=== PATIENT | male | born 1985 | race Hispanic/Latino ===

== ENCOUNTER 2018-12-27 11:52 | Emergency (ER) | payer OTHER ==
[2018-12-27 12:20] VITALS: BP 138/82; PULSE 62; RESP 18; TEMP 97.8; O2SAT 100
--- NOTE | 2018-12-27 13:59 | ED PDOC ---
Lower Extremity Pain/Injury Time Seen by Provider: 12/27/18 12:50 Chief Complaint (Nursing): Lower Extremity Problem/Injury Chief Complaint (Provider): Right 5th toe injury History Per: Patient History/Exam Limitations: no limitations Current Symptoms Are (Timing): Still Present Additional Complaint(s): 33 y/o male presents to the ER for evaluation of right 5th toe injury which he sustained last night. He reports he was at the gym when he jammed his toe against the bench. He reports localized pain which initially wasn't that bad but is worsening. This morning, he noticed his toe is bending outwards prompting evaluation. He states he took Advil last night but took nothing today. Patient has no other complaints and reports no other injuries. Denies loss of sensation or fever. PMD: none in this area as patient recently relocated from [place]. Past Medical History Reviewed: Historical Data, Nursing Documentation, Vital Signs Vital Signs: Last Vital Signs Temp 97.8 F 12/27/18 12:15 Pulse 62 12/27/18 12:15 Resp 18 12/27/18 12:15 BP 138/82 12/27/18 12:15 Pulse Ox 100 12/27/18 12:15 Primary Care Provider: FAMILY PROVIDER,NO - Medical History PMH: No Chronic Diseases - Surgical History Other surgeries: Right elbow ORIF; Left knee ACL repair; Right ankle ligaments repair - Family History Family History: States: Unknown Family Hx - Home Medications Home Medications: Ambulatory Orders Medication Instructions Recorded Acetaminophen [Acetaminophen 8 650 mg PO Q8 PRN #21 tablet.er 12/27/18 Hour] Naproxen 500 mg PO BID PRN #20 tab 12/27/18 - Allergies Allergies/Adverse Reactions: Allergies Allergy/AdvReac Type Severity Reaction Status Date / Time No Known Allergies Allergy Verified 12/27/18 12:46 Review of Systems ROS Statement: Except As Marked, All Systems Reviewed And Found Negative Constitutional: Negative for: Fever Musculoskeletal: Positive for: Other (Right fifth toe injury with pain) Neurological: Negative for: Other (Loss of sensation) Physical Exam - Reviewed Nursing Documentation Reviewed: Yes Vital Signs Reviewed: Yes - Physical Exam Comments: GENERAL APPEARANCE: Patient is awake, alert, oriented x 3, in no acute distress. Resting comfortably and reading a book. SKIN: Warm, dry; (-) cyanosis. NECK: Supple, FROM ENT: Mucus membranes moist. Airway patent, (-) stridor. CHEST AND RESPIRATORY: (-) rales, (-) rhonchi, (-) wheezes; breath sounds equal bilaterally. Respirations even and nonlabored. HEART AND CARDIOVASCULAR: (-) irregularity LOWER EXTREMITY: Right foot: (+) diffuse tenderness with mild edema to the right fifth toe, no ROM of toe secondary to pain, (+) lateral angulation of 5th toe; sensation and capillary refill intact. Remainder of foot, ankle, and lower extremity nontender with full ROM. (-) calf tenderness (-) pedal edema NEURO AND PSYCH: Mental status as above. Gait: steady. Speech: clear. (-) facial asymmetry - ECG O2 Sat by Pulse Oximetry: 100 (RA) Pulse Ox Interpretation: Normal Medical Decision Making Medical Decision Making: Initial Impression: Acute toe injury r/o fracture Initial Plan: --Motrin 800mg PO --Right foot X-ray 3 views --Re-evaluation 1425 XR reviewed: oblique, slightly displaced fracture of the proximal phalanx of the right 5th toe as read by Heather FINNEGAN In light of XR findings, consult placed to podiatry resident. Case discussed with resident Alen Mayo, who agrees to evaluation in ED. Radiology report follows: Date of service: 12/27/2018 PROCEDURE: Right Foot Radiographs. HISTORY: 5th toe injury COMPARISON: None. TECHNIQUE: 3 views obtained. FINDINGS: BONES: Acute and angulated fracture proximal phalanx right 5th digit. The finding is marked on the study for review. JOINTS: Normal. SOFT TISSUES: Normal. OTHER FINDINGS: None. IMPRESSION: Acute fracture proximal phalanx right 5th digit. 1450 Podiatry at bedside. See consult note. 1515 Patient placed in chen tape, chey bandage and surgical shoe by podiatry. NV intact after placement. RICE encouraged. On re-evaluation, patient reports improvement of symptoms. On exam, patient remains AAOx3, in no acute distress. VSS, stable for discharge. Lab/Diagnostic results d/w the patient in great detail. Diagnosis of 5th toe fracture d/w the patient. Based on history, exam and diagnostic results, plan will be for outpatient follow up with Dr Hermosillo. Patient instructed to follow-up with pmd / referral provided / the clinic in 1- 2 days without fail. Advised to take medication as prescribed. Return to the emergency room at any time for any new or worsening symptoms. Patient states he fully agrees with and understands discharge instructions. States that he agrees with the plan and disposition. Verbalized and repeated discharge instructions and plan. I have given the patient opportunity to ask any additional questions. Scribe Attestation: Documented by Ki Hernandez acting as a scribe for Gaviota PUGH. Provider Scribe Attestation: All medical record entries made by the Scribe were at my direction and personally dictated by me. I have reviewed the chart and agree that the record accurately reflects my personal performance of the history, physical exam, medical decision making, and the department course for this patient. I have also personally directed, reviewed, and agree with the discharge instructions and disposition. Disposition - Clinical Impression Clinical Impression: Fracture of fifth toe, right, closed, Toe pain - Patient ED Disposition Is Patient to be Admitted: No Counseled Patient/Family Regarding: Studies Performed, Diagnosis, Need For Followup, Rx Given - Disposition Referrals: Jesse Hermosillo MD [Staff Provider] - Disposition: Routine/Home Disposition Time: 15:15 Condition: STABLE Additional Instructions: The emergency medical care you received today was directed at your acute symptoms. If you were prescribed any medication, please fill it and take as directed. It may take several days for your symptoms to resolve. Return to the Emergency Department if your symptoms worsen, do not improve, or if you have any other problems. Please contact your doctor in 2 days for re-evaluation and follow up / or call one of the physicians/clinics you have been referred to that are listed on the Patient Visit Information form that is included in your discharge packet. Bring any paperwork you were given at discharge with you along with any medications you are taking to your follow up visit. Our treatment cannot replace ongoing medical care by a primary care provider (PCP) outside of the emergency department. Prescriptions: Acetaminophen [Acetaminophen 8 Hour] 650 mg PO Q8 PRN #21 tablet.er PRN Reason: Pain, Moderate (4-7) Naproxen 500 mg PO BID PRN #20 tab PRN Reason: Pain, Moderate (4-7) Instructions: Toe Fracture, Muscle and Bone Pain (DC), Toe Injury (DC) Forms: [facility] (Belizean) Print Language: BURUNDIAN - POA Present On Arrival: Falls Or Trauma
--- NOTE | 2018-12-27 14:40 | RAD ---
Date of service: 12/27/2018 PROCEDURE: Right Foot Radiographs. HISTORY: 5th toe injury COMPARISON: None. TECHNIQUE: 3 views obtained. FINDINGS: BONES: Acute and angulated fracture proximal phalanx right 5th digit. The finding is marked on the study for review. JOINTS: Normal. SOFT TISSUES: Normal. OTHER FINDINGS: None. IMPRESSION: Acute fracture proximal phalanx right 5th digit.
--- NOTE | 2018-12-27 17:02 | CP.PCM.CON ---
History of Present Illness - History of Present Illness History of Present Illness: Consult note for attending Dr. Hermosillo: 33 y/o M patient with No PMH seen and evaluated in the ED for pain and swelling of the Right 5th toe. Patient states that yesterday he stub his right pinky toe. He states that she immediately had pain and swelling of his toe. Patient states that the pain was 5/10 but now improved. Patient states that the toe looks deformed. Patient denies any tingling, numbness or burning sensation at this ti me. He denies any recent F/N/V/C/CP or SOB. He denies any other pedal complaint at this time. PMH: None. PSH: Left knee surgeries, Left ankle surgery, Right arm surgery. Allergies: NKDA Social Hx: Denies smoking, EtOH use or Illicit drug use. Review of Systems - Review of Systems Review of Systems: As per HPI - Constitutional Constitutional: As Per HPI Past Patient History - Past Social History Smoking Status: Never Smoked - PSYCHIATRIC Hx Substance Use: No - SURGICAL HISTORY Hx Musculoskeletal Surgery: Yes (left aclx2) - ANESTHESIA Hx Anesthesia: Yes Hx Anesthesia Reactions: No Meds Home Medications: Home Medication List Medication Instructions Recorded Confirmed Type Acetaminophen [Acetaminophen 8 650 mg PO Q8 PRN #21 tablet.er 12/27/18 Rx Hour] Naproxen 500 mg PO BID PRN #20 tab 12/27/18 Rx Allergies/Adverse Reactions: Allergies Allergy/AdvReac Type Severity Reaction Status Date / Time No Known Allergies Allergy Verified 12/27/18 12:46 Physical Exam - Constitutional Appears: Well, Non-toxic, No Acute Distress - Head Exam Head Exam: ATRAUMATIC, NORMOCEPHALIC - Extremities Exam Additional comments: RLE focused exam: Vasc: DP/PT 2/4 b/l. Cap refill < 3 sec to all digits, Temp gradient warm to cool from proximal to distal. Mild non pitting edema and ecchymosis of the 5th toe. Neuro: Gross and protective sensations are intact. Derm: No open lesions, No clinical signs of active infection. MSK: Mild pain on palpating the 5th toe. MMT 5/5 to all groups. - Neurological Exam Neurological exam: Alert, Oriented x3 - Psychiatric Exam Psychiatric exam: Normal Affect, Normal Mood Results - Vital Signs Recent Vital Signs: Last Vital Signs Temp 97.8 F 0516/19 12:15 Pulse 62 12/27/18 12:15 Resp 18 12/27/18 12:15 BP 138/82 12/27/18 12:15 Pulse Ox 100 12/27/18 15:22 Assessment & Plan - Assessment and Plan (Free Text) Assessment: 33 y/o M patient with No PMH seen and evaluated in the ED for right 5th toe proximal phalanx fracture. Plan: Patient seen and evaluated in the ED Plan discussed with Dr. Hermosillo. Charts and vitals reviewed; Afebrile. X-ray right foot: right 5th toe proximal phalanx fracture. chen splint applied to the right 4th and 5th toes. Patient instructed to keep the chen splint C/D/I Patient instructed to stay bear weight in a surgical shoe. Dispensed right surgical shoe. Patient instructed to use OTC pain meds if needed. Patient educated and advised to do RICE protocol. Patient expressed verbal understanding. Patient will follow up in Dr. Hermosillo office upon discharge from the ED. - Date & Time Date: 12/27/18 Time: 16:56
== END 2018-12-27 15:43 | disposition home or self-care (01) ==
LOC: H.ER 11:52
DX: S92.355A Nondisplaced fracture of fifth metatarsal bone, left foot, initial encounter for closed fracture (principal); W22.8XXA Striking against or struck by other objects, initial encounter; Y92.89 Other specified places as the place of occurrence of the external cause